=== PATIENT | female | born 1985 ===

== ENCOUNTER 2020-08-14 00:39 | Outpatient (CLI) | payer OTHER, SELFPAY ==
--- NOTE | 2020-08-14 15:21 | DI.MAMMO_ITS ---
EXAM: MG MAMMO SCREENING CLINICAL HISTORY: SCREENING, FAMILY H/O BREAST CA TECHNIQUE: Bilateral full field digital CC and MLO mammographic images were obtained with 3D tomosyn thesis and utilizing computer aided detection (CAD). COMPARISON: None. This is a baseline examination. FINDINGS: Masses/Architectural Distortion: None seen. Microcalcifications: No suspicious pleomorphic-type are seen. Skin Thickening/Nipple Retraction: None. IMPRESSION: 1. No significant interval change with no specific features of malignancy noted. 2. Unless there is more urgent need, screening mammography is recommended, as per [employer] [employer] guidelines. BI-RADS Category 1 - Negative Breast Density - Category B - Scattered areas of fibroglandular density Breast density category C or D implies that the patient has dense breast tissue. Dense breast tissue is very common and is not abnormal but dense breast tissue can make it harder to find cancer on a ma mmogram. Also, dense breast tissue may increase their breast cancer risk. This information about the result of the mammogram report was provided to the patient to raise their awareness. Use this report when you speak with the patient about their risks for breast cancer, which includes their family hist ory. At that time, you may recommend for more screening tests (Ultrasound or MRI) as they might be us eful based on their risk. A negative radiographic report should not delay biopsy if a dominant or clinically suspicious mass is present. Up to ten percent of cancers are not identified on mammography. A negative report may reinforce clinical impression. Adenosis and dense breasts may obscure an underlying neoplasm. False positive reports average 6 to 10%. Patient will receive a letter notifying them of these results.
== END 2020-08-14 00:40 | disposition home or self-care (01) ==
PROVIDERS: Visit Provider Advanced Practice Midwife
DX: Z12.31 Encounter for screening mammogram for malignant neoplasm of breast (principal); Z80.3 Family history of malignant neoplasm of breast
CPT/HCPCS: 77063; 77067

== ENCOUNTER 2021-08-07 15:28 | Emergency (ER) | payer OTHER, SELFPAY ==
[2021-08-07 15:33] VITALS: BP 123/82; PULSE 102; RESP 18; TEMP 36.6; O2SAT 98
--- NOTE | 2021-08-07 16:06 | DI.RAD_ITS ---
Exam(s) XR HAND RT COMPLETE EXAM: XR HAND RT COMPLETE CLINICAL HISTORY: pain 3rd and 4th PIP, injury. TECHNIQUE: 2D digital imaging was performed. COMPARISON: No exams were available for comparison FINDINGS: There is no oblique nondisplaced fracture in middle phalanx of the 4th finger which extends towards t he medial aspect of the DIP joint. No other fractures identified. No osseous lesions. No radiopaqu e foreign body. IMPRESSION: Fourth-ring finger fractures described above involving the middle phalanx. Nondisplaced. DATA REPOSITORY: RADIATION DOSE DELIVERED:
--- NOTE | 2021-08-07 16:15 | W.ED.GENAD ---
Discharge Plan Disposition Patient Disposition: HOME Condition: Stable Discharge Details Clinical Impression: Closed fracture of phalanx of right ring finger Primary Care Provider: Marina Sharpe ED Provider: Keven Lozano Home Meds and New Rx's Prescriptions: Continued sertraline 50 mg tablet 50 mg PO DAILY RF: 0 Discharge Instructions Instructions: Finger Fracture (ED) Additional Instructions: Please take ibuprofen over the counter. Take 600mg by mouth every 6 hours as needed for pain. Keep splint intact and follow-up with orthopedics. Call for an appointment. Return to the emergency department immediately for any worsening or new concerning symptoms. Referrals: [facility] [Provider Group] Medical Decision Making 36-year-old female here with injury to her right third and fourth digit. Neurovascular intact distally. Patient has tenderness over proximal and mid phalanx of her third digit as well as PIP and mid phalanx of fourth digit. She is able to flex and extend but has pain on active flexion. X-ray of the right hand was reviewed and interpreted by me: Transverse fracture of the mid phalanx fourth digit with no displacement. Third and fourth digits splinted volarly with padded aluminum splint/talita tape. Plan for follow-up with orthopedics. Ibuprofen was provided for pain. Usual customary discharge instructions were reviewed with patient. HPI General Mode of arrival: ambulatory. Date/Time Provider Initiated Documentation: 08/07/21 15:51. Limitations to Documentation: no limitations. Information obtained by: patient. HPI Narrative: 36-year-old female presents with chief complaint of right finger pain. Patient notes that just prior to arrival she had to break up a fight between her newly adopted dog and her goat. She fell and injured her right third and fourth digits. Pain is moderate and worse with flexion of the digits. No associated numbness or tingling. No other injury. No break in skin. Related Data Home Medications Medication Instructions Recorded Confirmed sertraline 50 mg tablet 50 mg PO DAILY 02/01/21 08/07/21 Allergies Allergy/AdvReac Type Severity Reaction Status Date / Time No Known Allergies Allergy Verified 08/07/21 15:41 General Stated Complaint: Orthopedic PETER: 4 Review of Systems Musculoskeletal Musculoskeletal: Reports as per HPI Integumentary/Breasts Skin/Breast: Reports as per HPI PFSH All Active Problems Closed fracture of phalanx of right ring finger (Acute) Social History Smoking/Tobacco Use Status: Never Smoking risk assessment performed?: Yes Drug use: Never Do you feel safe at home: Yes Do you feel safe in your relationship?: Yes Exam Skin General skin exam: no rashes or lesions noted Neuro General: patient alert, patient awake and tone normal Extrem General: no edema Right upper extremity: hand Details: normal capillary refill, neuromotor exam normal, neurosensory exam normal, tenderness Location: of the 3rd digit Location: at the proximal phalanx and at the middle phalanx and of the 4th digit Location: at the middle phalanx and abnormal ROM of finger Details: pain with active ROM Location: of the 3rd digit and of the 4th digit Course Vital Signs Vital signs: Vital Signs Temperature 36.6 C 08/07/21 15:33 Pulse 102 H 08/07/21 15:33 Respiratory Rate 18 08/07/21 15:33 Blood Pressure 123/82 08/07/21 15:33 Pulse Oximetry 98 08/07/21 15:33 Temperature 36.6 C 08/07/21 15:33 Temperature Source Temporal Artery Scan 08/07/21 15:33 Pulse 102 H 08/07/21 15:33 Respiratory Rate 18 08/07/21 15:33 Respiratory Effort Non-Labored 08/07/21 15:40 Blood Pressure 123/82 08/07/21 15:33 Blood Pressure Position Supine 08/07/21 15:33 Pulse Oximetry 98 08/07/21 15:33 Oxygen Delivery Method Room Air 08/07/21 15:33 Oxygen Flow Rate 0 08/07/21 15:33 Pain Level 2 08/07/21 15:42 PAWSS Have you Been Recently Intoxicated or Drunk Within the Last 30 days?: No Have you Ever Experienced Previous Episodes of Alcohol Withdrawal?: No Have you ever Experienced Withdrawal Seizures?: No Have you ever Experienced Delirium Tremens(DT)s?: No Have you ever undergone Alcohol Rehabilitation Treatment (i.e, inpt ot outpatient treatment programs)?: No Have you ever Experienced Blackouts?: No Have you ever Combined Alcohol with other Downers within the last 90 days?: No Have you ever Combined Alcohol with any other Substance of Abuse during the last 90 days?: No Positive Blood Alcohol level on Presentation? [PCS.BAL]: No Evidence of Increased Autonomic Activity (i.e. HR>120, tremor, sweating, agitation, nausea)?: No Result: 0
--- NOTE | 2021-08-07 16:16 | NUR.NOTE ---
Nursing Note: PT INFO FAXED TO ORTHOPEDIC W/ DIAGNOSIS AND SPLINT INFO. ROSA, ED
[2021-08-07] MEDS: Ibuprofen 600 MG TAB PO (16:34)
== END 2021-08-07 16:42 | disposition home or self-care (01) ==
PROVIDERS: Emergency Provider Student in an Organized Health Care Education/Training Program
DX: S62.614A Displaced fracture of proximal phalanx of right ring finger, initial encounter for closed fracture (principal); S69.81XA Other specified injuries of right wrist, hand and finger(s), initial encounter; W18.39XA Other fall on same level, initial encounter
CPT/HCPCS: 29125; 99283; 73130

== ENCOUNTER 2022-03-06 00:33 | Outpatient (CLI) | payer OTHER, SELFPAY ==
--- NOTE | 2022-03-06 07:00 | DI.MRI_ITS ---
Exam(s) MR UPPER EXTREMITY RT WO EXAM: MR UPPER EXTREMITY RT WO CLINICAL HISTORY: PIP PAIN-DEFORMITY,injury, [id number]. TECHNIQUE: Multiplanar multisequence MRI was performed. COMPARISON: No exams were available for comparison FINDINGS: MR examination of the fingers was performed according to the usual protocol. The patient reportedly has a history of injury at the PIP joint of the middle finger. At the PIP joint of the middle finger, there is markedly abnormal signal in the accessory collateral ligament of the ulnar aspect of the joint. Mildly abnormal signal also noted in proper collateral li gament and there may be a detachment of the distal portion of the proper collateral ligament from the middle phalanx. Volar plate structures including check Raynaud's appear intact. The flexor and extensor tendons are unremarkable. No significant bony signal abnormality identified. Minimal fluid is noted in the MCP and IP joints throughout the region surveyed. No other significant findings. IMPRESSION: The appearance is consistent with sprain of the accessory collateral ligament and proper collateral l igament of the ulnar aspect of the PIP joint of the middle finger as described above. No significant volar plate injury seen. No fracture. DATA REPOSITORY:
== END 2022-03-06 00:53 ==
LOC: DI 00:34
PROVIDERS: PCP Family Medicine; Visit Provider Student in an Organized Health Care Education/Training Program
DX: S69.81XA Other specified injuries of right wrist, hand and finger(s), initial encounter; M79.644 Pain in right finger(s); S63.632A Sprain of interphalangeal joint of right middle finger, initial encounter; X58.XXXA Exposure to other specified factors, initial encounter
CPT/HCPCS: 73218